=== PATIENT | male | born 1960 | race Caucasian/White ===

== ENCOUNTER → 2016-12-16 | Outpatient (CLI) | payer MEDICARE ==
--- NOTE | 2016-12-16 09:40 | XR ---
EXAMINATION TYPE: XR chest 2V DATE OF EXAM: 12/16/2016 9:33 AM COMPARISON: 06/21/2016 HISTORY: Cough FINDINGS: The lungs are clear and there is no pneumothorax, pleural effusion, or focal pneumonia. Postoperati ve change and cardiomegaly. Hyperinflation suggests COPD. Degenerative changes spine and arthropathy of the shoulders. Linear changes involving the left upper and lower lobe suggestive of scar or atelec tasis. IMPRESSION: 1. No acute process.
--- NOTE | 2016-12-16 09:41 | XR ---
EXAMINATION TYPE: XR knee limited RT DATE OF EXAM: 12/16/2016 9:33 AM COMPARISON: NONE HISTORY: Pain TECHNIQUE: 2 views are submitted. FINDINGS: Mild narrowing medial compartment of the knee joint with hypertrophic changes. Mild hypertrophic lira ge of the patellofemoral joint.. Osseous structures are intact. No acute fracture seen. IMPRESSION: 1. No acute fracture or dislocation. 2. Mild osteoarthritis.
--- NOTE | 2016-12-17 09:37 | ECHOF ---
Referral Reason:I50.9 HEART FAILURE MEASUREMENTS -------- HEIGHT: 182.9 cm WEIGHT: 113.4 kg BP: 141/80 RVIDd: 3.1 cm (< 3.3) IVSd: 1.6 cm (0.6 - 1.1) LVIDd: 6.0 cm (3.9 - 5.3) LVPWd: 1.5 cm (0.6 - 1.1) IVSs: 1.8 cm LVIDs: 5.1 cm LVPWs: 1.7 cm LA Diam: 4.4 cm (2.7 - 3.8) LAESV Index (A-L): 30.40 ml/m Ao Diam: 3.4 cm (2.0 - 3.7) AV Cusp: 2.7 cm (1.5 - 2.6) LA Diam: 4.8 cm (2.7 - 3.8) MV EXCURSION: 7.831 mm (> 18.000) MV EF SLOPE: 26 mm/s (70 - 150) EPSS: 1.7 cm MV E Ar: 0.43 m/s MV DecT: 299 ms MV A Ar: 0.71 m/s MV E/A Ratio: 0.61 FINDINGS -------- Sinus rhythm. This was a technically adequate study. There is moderate concentric left ventricular hypertrophy. Overall left ventricular systolic function is severely impaired with, an EF between 25 - 30 %. The right ventricle is normal in size. LA is midly dilated 29-33ml/m2. The right atrium is normal in size. 1.5mg of Definity was utilized for enhancement of images Aortic valve is trileaflet and is mildly thickened. The mitral valve leaflets are mildly thickened. Mild mitral annular calcification present. Trace tricuspid regurgitation present. The pulmonic valve was not well visualized. The aortic root size is normal. There is no pericardial effusion. CONCLUSIONS -------- 1. Sinus rhythm. 2. The mitral valve leaflets are mildly thickened. 3. Mild mitral annular calcification present. 4. Trace tricuspid regurgitation present. 5. The pulmonic valve was not well visualized. 6. The aortic root size is normal. 7. There is no pericardial effusion. 8. This was a technically adequate study. 9. There is moderate concentric left ventricular hypertrophy. 10. Overall left ventricular systolic function is severely impaired with, an EF between 25 - 30 %. 11. The right ventricle is normal in size. 12. LA is midly dilated 29-33ml/m2. 13. The right atrium is normal in size. 14. 1.5mg of Definity was utilized for enhancement of images 15. Aortic valve is trileaflet and is mildly thickened. [employer]: Missy Shelton RDCS
== END | disposition home or self-care (01) ==
LOC: RADXRMAIN 09:01
PROVIDERS: ATTEND Physician Assistant
DX: M17.11 Unilateral primary osteoarthritis, right knee (principal); R05 Cough
CPT/HCPCS: 71020; 73560; C8929; Q9957; 36415; 70491; 82565; 84520; 93306

== ENCOUNTER → 2016-12-16 | Outpatient (CLI) | payer MEDICARE ==
[2016-12-16 10:30] LABS: Blood Urea Nitrogen 27 mg/dL (9-20); Non-African American GFR(MDRD) 54 (>60 ml/min/1.73 sqM)
--- NOTE | 2016-12-16 11:44 | CT ---
EXAMINATION TYPE: CT soft tissue neck w con DATE OF EXAM: 12/16/2016 11:24 AM HISTORY: Rt neck mass for 10 years per patient COMPARISON: CT cervical spine November 23, 2015. Neck ultrasound February 06, 2016 CT DLP: 899.4 mGycm. Automated Exposure Control for Dose Reduction was Utilized. TECHNIQUE: CT scan of the neck is performed with IV Contrast, patient injected with 100 mL of Visipa que 320, axial images are obtained, coronal and sagittal reformatted images are reviewed. FINDINGS: Metallic BB is placed at level palpable abnormality on axial image 58. At level of cervical spine in between cervical muscles there is redemonstration of well-circumscribed fat density lesion measuring up to 8.8 cm anterior posterior dimension by 6.0 cm transversely on axial image 50 x 8.8 cm in craniocaudal dimension on sagittal image 37 and coronal image 46. Some wispy areas of linear soft tissue are present along the periphery. There is no significant change from prior CT. Findings favor lipoma. Airway: Sternal wires are partially imaged on current study. Parotid/submandibular glands: No gross abnormality seen. Carotid/Vascular Structures: There is dominant left vertebral artery noted. There is moderate to francine re mixed plaque at left carotid bulb extending into proximal internal carotid artery stenosis approac bertrand but under 50% is present near axial image 57. More mild calcified plaque is seen at right caroti d bulb. Osseous Structures: There is straightening of cervical spine with moderate to severe multilevel spurr ing and moderate multilevel disc space narrowing from C4-C5 through C6-C7 levels redemonstrated. Other: No suspicious greater than 1 cm neck adenopathy is present. Some scattered subcentimeter lymph nodes are seen throughout the neck bilaterally. 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
== END | disposition home or self-care (01) ==
LOC: RADCTMAIN 09:24
PROVIDERS: ATTEND Family Medicine
DX: R22.1 Localized swelling, mass and lump, neck (principal)
CPT/HCPCS: 82565; 84520; 70491; 36415; Q9967

== ENCOUNTER → 2017-06-05 | Outpatient (CLI) | payer MEDICARE ==
--- NOTE | 2017-06-05 10:38 | US ---
EXAMINATION TYPE: US kidneys/renal and bladder DATE OF EXAM: 06/05/2017 COMPARISON: Prior renal ultrasound June 22, 2016 CLINICAL HISTORY: E11.21 TYPE II DIABETES. no symptoms per patient EXAM MEASUREMENTS: Right Kidney: 9.5 x 4.3 x 5.5 cm Left Kidney: 11.0 x 4.3 x 5.5 cm difficult to penetrate due to body habitus and bowel gas Right Kidney: wnl Left Kidney: wnl Bladder: not fully distended, appears wnl Bilateral Jets seen: no There is no evidence for hydronephrosis at this point in time. No nephrolithiasis is seen. No yunier s are identified on images saved. The urinary bladder is poorly distended making evaluation suboptim al. Bilateral ureteral jets are not seen. IMPRESSION: Suboptimal study without hydronephrosis evident bilaterally. No significant change from prior.
== END | disposition home or self-care (01) ==
LOC: RADUSWWP 09:41
PROVIDERS: ATTEND Family Medicine
DX: E11.21 Type 2 diabetes mellitus with diabetic nephropathy (principal)
CPT/HCPCS: 76770

== ENCOUNTER → 2017-09-25 | Outpatient (CLI) | payer MEDICARE ==
--- NOTE | 2017-09-25 16:08 | XR ---
Limited right elbow HISTORY: Trauma and pain 2 views of the right elbow Soft tissue swelling is noted posteriorly. Small ossific density near the insertion of the triceps te ndon is well-corticated and may represent calcific tendinitis rather than small chip fracture, diffic ult to exclude ossific density posterior to the distal humerus however measuring 1 cm. No evident mei nt effusion. Bone mineralization and alignment maintained. Marginal spurring present at the elbow. IMPRESSION: Soft tissue swelling is described. There may be fractured enthesophyte posterior to the d istal humerus. Osteoarthritic changes are present.
== END | disposition home or self-care (01) ==
LOC: RADXRMAIN 13:29
PROVIDERS: ATTEND Family Medicine
DX: M19.022 Primary osteoarthritis, left elbow (principal); M79.89 Other specified soft tissue disorders

== ENCOUNTER → 2018-01-27 | Outpatient (CLI) | payer MEDICARE ==
--- NOTE | 2018-01-27 15:55 | XR ---
Left shoulder HISTORY: Rotator cuff tear, trauma and pain 3 views of the left shoulder, no comparisons Arthropathy noted at the acromioclavicular joint. Bone mineralization, joint spaces and alignment are maintained. Left lung apex as visualized is normal. Patient is post median sternotomy. IMPRESSION: No acute fracture or dislocation. Correlate for impingement. Shoulder MRI may be of benef it.
--- NOTE | 2018-01-27 16:10 | XR ---
Right knee HISTORY: Trauma and pain 3 views of the right knee correlated to prior exam 12/16/2016 Mild arthropathy noted within the medial compartment, there is marginal spurring. Suprapatellar incre ased density compatible joint effusion. Soft tissue swelling is noted. IMPRESSION: Mild osteoarthritis. No acute fracture or dislocation is evident. There is soft tissue sw elling.
== END | disposition home or self-care (01) ==
LOC: RADXRMAIN 12:35
PROVIDERS: ATTEND Family Medicine
DX: M17.11 Unilateral primary osteoarthritis, right knee (principal); M75.102 Unspecified rotator cuff tear or rupture of left shoulder, not specified as traumatic

== ENCOUNTER → 2018-03-03 | Outpatient (CLI) | payer MEDICARE ==
[2018-03-03 16:20] LABS: Collection Time,Urine 24 hrs; Total Volume 24 Hour,Urine 1000 mls (800-1800)
[2018-03-03 16:36] LABS: Total Protein 24 Hour,Urine 80 mg/24hr (42.0-225.0)
== END | disposition home or self-care (01) ==
LOC: LABWHC1 11:23
PROVIDERS: ATTEND Family Medicine
DX: N17.9 Acute kidney failure, unspecified (principal)
CPT/HCPCS: 36415; 81050; 82575; 84156

== ENCOUNTER → 2018-03-12 | Outpatient (CLI) | payer MEDICARE ==
--- NOTE | 2018-03-12 17:07 | US ---
EXAMINATION TYPE: US kidneys/renal and bladder DATE OF EXAM: 03/12/2018 COMPARISON: 06/22/2016 CLINICAL HISTORY: N17.9 Acute kidney failure unspecified. Diabetic, large body habitus, smoker, h/o r enal failure EXAM MEASUREMENTS: Right Kidney: 9.4 x 4.2 x 5.1 cm Left Kidney: 9.3 x 3.9 x 5.5 c very limited exam due to reasons stated above Right Kidney: limited visibility Left Kidney: limited visibility Bladder: wnl Bilateral Jets seen: yes There is no evidence for hydronephrosis at this point in time. No nephrolithiasis is seen. IMPRESSION: Again the exam is suboptimal secondary to patient body habitus with no gross evidence of hydronephros is.
== END | disposition home or self-care (01) ==
LOC: RADUSWWP 14:58
PROVIDERS: ATTEND Family Medicine
DX: N17.9 Acute kidney failure, unspecified (principal)
CPT/HCPCS: 76770